=== PATIENT | female | born 1960 | race American Indian/Alaskan Native ===

== ENCOUNTER 2017-01-06 09:39 | Outpatient (CLI) | payer MEDICAID ==
--- NOTE | 2017-01-07 10:28 | Magnetic Resonance Report ---
MRI RIGHT SHOULDER WITHOUT CONTRAST: 01/06/17 CLINICAL: Right shoulder pain. TECHNIQUE: Coronal T1, coronal T2, coronal proton density fat saturation, sagittal proton density fat saturation and axial gradient echo T* sequences on a 1.5 Ginette magnet. FINDINGS: Type I acromion and moderate acromioclavicular joint arthritis with impingement. Full-thickness tears of the supraspinatus and infraspinatus tendons with retraction of the tendons to be level of the acromioclavicular joint. Moderate atrophy and fatty infiltration of the supraspinatus and infraspinatus muscles. Partial-thickness tear of the subscapularis tendon. Biceps tendinosis and fluid in the biceps tendon sheath. The glenoid labrum appears intact. There is a small joint effusion. Normal marrow signal with no bone contusion or fracture. IMPRESSION: 1. A full-thickness rotator cuff tear with involvement of the supraspinatus and infraspinatus tendons. 2. Supraspinatus and infraspinatus muscle atrophy. 3. Partial thickness tear of the subscapularis tendon. 4. Biceps tendinosis. 5. Moderate acromioclavicular joint arthritis with subacromial impingement of the rotator cuff.
== END 2017-01-06 09:40 | disposition home or self-care (01) ==
LOC: MRI 09:39
PROVIDERS: ATTEND Orthopaedic Surgery
DX: S46.911A Strain of unspecified muscle, fascia and tendon at shoulder and upper arm level, right arm, initial encounter (principal); M75.101 Unspecified rotator cuff tear or rupture of right shoulder, not specified as traumatic; M19.011 Primary osteoarthritis, right shoulder; M62.511 Muscle wasting and atrophy, not elsewhere classified, right shoulder; M25.811 Other specified joint disorders, right shoulder; X58.XXXA Exposure to other specified factors, initial encounter; Y93.89 Activity, other specified; Y92.89 Other specified places as the place of occurrence of the external cause; Y99.8 Other external cause status

== ENCOUNTER 2018-07-29 17:14 | Emergency (ER) | payer MEDICAID ==
[2018-07-29 17:35] VITALS: BP 143/62
--- NOTE | 2018-07-29 17:44 | Emergency Department Report ---
ED Rash HPI - HPI Chief Complaint: Skin Rash Stated Complaint: BED BUGS BITES Time Seen by Provider: 07/29/18 17:34 Duration: 1 Day Location: Upper Extremities Suspected Cause: Insect (was at friends house whom had bed bugs helping to clean) Rash Symptoms: Yes Itching, Yes Lightheaded, No Choking Sensation, No Wheezing/Dyspnea, No Blistering Severity: moderate (pruritis) ED Review of Systems ROS: Stated complaint: BED BUGS BITES Other details as noted in HPI Constitutional: denies: chills, fever Eyes: denies: eye pain, eye discharge, vision change ENT: denies: ear pain, throat pain Respiratory: denies: cough, shortness of breath, wheezing Cardiovascular: denies: chest pain, palpitations Endocrine: no symptoms reported Gastrointestinal: denies: abdominal pain, nausea, diarrhea Genitourinary: denies: urgency, dysuria, discharge Musculoskeletal: denies: back pain, joint swelling, arthralgia Skin: rash. denies: lesions Neurological: denies: headache, weakness, paresthesias Psychiatric: denies: anxiety, depression Hematological/Lymphatic: denies: easy bleeding, easy bruising ED Past Medical Hx - Social History Smoking Status: Never Smoker Substance Use Type: None - Medications Home Medications: Home Medications Medication Instructions Recorded Confirmed Last Taken Type Mometasone Furoate [Elocon] 45 gm TP BID #1 cream..g. 07/29/18 Unknown Rx Permethrin [Elimite] 60 gm TP ONCE #1 cream..g. 07/29/18 Unknown Rx hydrOXYzine HCL [Atarax] 25 mg PO Q6HR PRN #20 tablet 07/29/18 Unknown Rx predniSONE [Deltasone] 50 mg PO QDAY #5 tab 07/29/18 Unknown Rx Rash Exam - Exam General: Vital signs noted. No distress. Alert and acting appropriately. HEENT: No Periorbital Edema, No Conjuctival Injection, No Chemosis, No Perioral Edema, No Tongue Edema, No Uvular Edema, No Compromised Airway, No Drooling Lungs: Yes Good Air Exchange (Normal Breath Sounds), No Wheezes, No Ronchi, No Stridor, No Cough, No Labored Respirations, No Retractions, No Use of Accessory Muscles, No Other Abnormal Lung Sounds Heart: Yes Regular, No Murmur Skin: Yes Tenderness, Yes Erythema (dome like insect bite in linear fashing going up arms to shoulder and chest), No Urticarial Rash, No Maculopapular Rash, No Bulla(e), No Excoriations, No Encrustations Other: Positive: Abdomen Normal, Neurologic Normal, Musculoskeletal Normal ED Course Vital Signs 07/29/18 17:34 Temperature 97.7 F Pulse Rate 52 L Respiratory 18 Rate Blood Pressure 143/62 O2 Sat by Pulse 97 Oximetry Critical care attestation.: If time is entered above; I have spent that time in minutes in the direct care of this critically ill patient, excluding procedure time. ED Disposition Clinical Impression: Bed bug bite, Mite infestation Disposition: - TO HOME OR SELFCARE Is pt being admited?: No Does the pt Need Aspirin: No Condition: Stable Instructions: Insect Bite or Sting (ED) Referrals: [facility] [Provider Group] - 3-5 Days
== END 2018-07-30 00:30 | disposition home or self-care (01) ==
LOC: ED 17:14
DX: R21 Rash and other nonspecific skin eruption (principal); Z53.21 Procedure and treatment not carried out due to patient leaving prior to being seen by health care provider

== ENCOUNTER 2019-05-02 09:40 | Emergency (ER) | payer MEDICAID ==
[2019-05-02 09:46] VITALS: BP 148/73
[2019-05-02] MEDS ORDERED: IPRATROPIUM/ALBUTEROL SULFATE 3 ML AMPUL.NEB IH ONE (10:42)
[2019-05-02] MEDS ORDERED: predniSONE 20 MG TAB PO ONE (10:42)
--- NOTE | 2019-05-02 10:45 | Emergency Department Report ---
- General Chief Complaint: Sore Throat Stated Complaint: FLU LIKE SYMPTOMS Time Seen by Provider: 05/02/19 10:34 Source: patient Mode of arrival: Ambulatory Limitations: No Limitations - History of Present Illness Initial Comments: Patient is a 58-year-old black female with past medical history of hypertension who is presenting with cough cold congestion. Patient states symptoms did present for approximately 5 days. Cough was initially nonproductive but now she has a yellow to brown sputum. Patient is has subjective fevers and chills. Patient has some shortness of breath associated with a cough. Patient is complaining of a mild sore throat but denies nausea vomiting diarrhea headache or neck stiffness. - Related Data Previous Rx's Medication Instructions Recorded Last Taken Type Mometasone Furoate [Elocon] 45 gm TP BID #1 cream..g. 07/29/18 Unknown Rx Permethrin [Elimite] 60 gm TP ONCE #1 cream..g. 07/29/18 Unknown Rx hydrOXYzine HCL [Atarax] 25 mg PO Q6HR PRN #20 tablet 07/29/18 Unknown Rx predniSONE [Deltasone] 50 mg PO QDAY #5 tab 07/29/18 Unknown Rx Albuterol INH(or & Nicu Only) 2 puff IH QID PRN #1 inhalation 05/02/19 Unknown Rx [ProAir HFA Inhaler] DOXYCYCLINE Hyclate [Vibramycin 100 mg PO Q12HR #14 capsule 05/02/19 Unknown Rx CAP] Promethazine/Phenyleph/Codeine 5 ml PO TID #120 ml 05/02/19 Unknown Rx [Promethazine Vc-Codeine Syrup] predniSONE [Deltasone] 20 mg PO QDAY #5 tab 05/02/19 Unknown Rx Allergies Allergy/AdvReac Type Severity Reaction Status Date / Time No Known Allergies Allergy Unverified 09/25/13 11:58 ED Review of Systems ROS: Stated complaint: FLU LIKE SYMPTOMS Other details as noted in HPI Comment: All other systems reviewed and negative ED Past Medical Hx - Past Medical History Hx Hypertension: Yes - Surgical History Additional Surgical History: hysterectomy - Social History Smoking Status: Current Every Day Smoker Substance Use Type: None - Medications Home Medications: Home Medications Medication Instructions Recorded Confirmed Last Taken Type Mometasone Furoate [Elocon] 45 gm TP BID #1 cream..g. 04/07/19 Unknown Rx Permethrin [Elimite] 60 gm TP ONCE #1 cream..g. 07/29/18 Unknown Rx hydrOXYzine HCL [Atarax] 25 mg PO Q6HR PRN #20 tablet 07/29/18 Unknown Rx predniSONE [Deltasone] 50 mg PO QDAY #5 tab 07/29/18 Unknown Rx Albuterol INH(or & Nicu Only) 2 puff IH QID PRN #1 inhalation 05/02/19 Unknown Rx [ProAir HFA Inhaler] DOXYCYCLINE Hyclate [Vibramycin 100 mg PO Q12HR #14 capsule 05/02/19 Unknown Rx CAP] Promethazine/Phenyleph/Codeine 5 ml PO TID #120 ml 05/02/19 Unknown Rx [Promethazine Vc-Codeine Syrup] predniSONE [Deltasone] 20 mg PO QDAY #5 tab 05/02/19 Unknown Rx ED Physical Exam - General Limitations: No Limitations General appearance: alert, in no apparent distress - Head Head exam: Present: atraumatic, normocephalic - Eye Eye exam: Present: normal appearance, PERRL, EOMI - ENT ENT exam: Present: mucous membranes moist. Absent: normal orophraynx (patient's posterior pharynx shows mild erythema without exudate) - Neck Neck exam: Present: normal inspection. Absent: lymphadenopathy - Respiratory Respiratory exam: Present: wheezes, rhonchi. Absent: normal lung sounds bilaterally, respiratory distress - Cardiovascular Cardiovascular Exam: Present: regular rate, normal rhythm, normal heart sounds. Absent: systolic murmur, diastolic murmur, rubs, gallop - GI/Abdominal GI/Abdominal exam: Present: soft, normal bowel sounds. Absent: distended, tenderness, guarding, rebound - Extremities Exam Extremities exam: Present: normal inspection - Back Exam Back exam: Present: normal inspection - Neurological Exam Neurological exam: Present: alert, oriented X3 - Psychiatric Psychiatric exam: Present: normal affect, normal mood - Skin Skin exam: Present: warm, dry, intact, normal color. Absent: rash ED Course Vital Signs 05/02/19 09:45 Temperature 97.8 F Pulse Rate 51 L Respiratory 20 Rate Blood Pressure 148/73 O2 Sat by Pulse 99 Oximetry - Reevaluation(s) Reevaluation #1: 05/02/19 10:44 Patient has mild wheeze and a bronchitic cough. 2 DuoNeb slowly given. Patient will have a chest x-ray to rule out pneumonia and a rapid strep will be sent as well. ED Medical Decision Making - Radiology Data Ordering Physician: JULIO CESAR TOLBERT MD Date of Service: 05/02/19 Procedure(s): XR chest 1V ap Accession Number(s): [id number] cc: JULIO CESAR TOLBERT MD Fluoro Time In Minutes: CHEST 1 VIEW INDICATION / CLINICAL INFORMATION: productive cough with fever. COMPARISON: None available. FINDINGS: SUPPORT DEVICES: None. HEART / MEDIASTINUM: No significant abnormality. LUNGS / PLEURA: Mild patchy opacity is seen in the left lower lung that may represent developing airspace consolidation. No pneumothorax. ADDITIONAL FINDINGS: No significant additional findings. IMPRESSION: 1. Minimal opacity in the left lower lung, possibly developing pneumonia. Signer Name: Ferdinand Bowers MD Signed: 05/02/2019 11:42 AM Workstation Name: [id number] - Medical Decision Making Patient was feeling much improved after neb treatment. Lungs have cleared. Cough has subsided. X-ray does show early atypical pneumonia. Patient was started on doxycycline as well as being given medications for symptomatic relief should be discharged home. Critical care attestation.: If time is entered above; I have spent that time in minutes in the direct care of this critically ill patient, excluding procedure time. ED Disposition Clinical Impression: Atypical pneumonia Disposition: DC-01 TO HOME OR SELFCARE Is pt being admited?: No Does the pt Need Aspirin: No Condition: Stable Instructions: Pneumonia (ED) Referrals: TIFFANY GARCIA JR, MD [Primary Care Provider] - 3-5 Days Time of Disposition: 12:25
--- NOTE | 2019-05-02 11:47 | XRay Report ---
CHEST 1 VIEW INDICATION / CLINICAL INFORMATION: productive cough with fever. COMPARISON: None available. FINDINGS: SUPPORT DEVICES: None. HEART / MEDIASTINUM: No significant abnormality. LUNGS / PLEURA: Mild patchy opacity is seen in the left lower lung that may represent developing airs pace consolidation. No pneumothorax. ADDITIONAL FINDINGS: No significant additional findings. IMPRESSION: 1. Minimal opacity in the left lower lung, possibly developing pneumonia. Signer Name: Ferdinand Bowers MD Signed: 05/02/2019 11:42 AM Workstation Name: [id number]
== END 2019-05-02 12:39 | disposition home or self-care (01) ==
LOC: ED 09:40
DX: R05 Cough (principal); J18.9 Pneumonia, unspecified organism; I10 Essential (primary) hypertension; F17.200 Nicotine dependence, unspecified, uncomplicated; Z97.10 Presence of artificial limb (complete) (partial), unspecified; Z79.899 Other long term (current) drug therapy
CPT/HCPCS: 71045; 87116; 87430; 94640; 99284; J7512

== ENCOUNTER 2020-02-10 13:52 | Emergency (ER) | payer MEDICAID ==
[2020-02-10] MEDS ORDERED: PANTOPRAZOLE 40 MG INJ IV ONE (16:25)
[2020-02-10] MEDS ORDERED: MORPHINE 4 MG/1 ML INJ IV ONE (16:25)
[2020-02-10] MEDS ORDERED: ONDANSETRON 4 MG/2 ML INJ IV ONE (16:25)
[2020-02-10 16:45] LABS: Basophils # (Auto) 0.1 K/mm3 (0.0-0.1); Basophils % (Auto) 0.9 % (0.0-1.8); Eosinophils # (Auto) 0.1 K/mm3 (0.0-0.4); Eosinophils % (Auto) 1.3 % (0.0-4.3); Hematocrit 39.3 % (30.3-42.9); Hemoglobin 13.4 gm/dl (10.1-14.3); Lymphocytes # (Auto) 2.3 K/mm3 (1.2-5.4); Lymphocytes % (Auto) 33.3 % (13.4-35.0); Mean Corpuscular HGB Conc 34 % (30-34); Mean Corpuscular Volume 87 fl (79-97); Monocytes # (Auto) 0.5 K/mm3 (0.0-0.8); Monocytes % (Auto) 7.3 % (0.0-7.3); Platelet Count 225 K/mm3 (140-440); Red Blood Count 4.52 M/mm3 (3.65-5.03); Red Cell Distribution Width 14.8 % (13.2-15.2)
--- NOTE | 2020-02-10 16:45 | Emergency Department Report ---
ED Abdominal Pain HPI - General Chief Complaint: Abdominal Pain Stated Complaint: STOMACH PAIN Time Seen by Provider: 02/10/20 15:59 Source: patient Mode of arrival: Ambulatory Limitations: No Limitations - History of Present Illness Initial Comments: Patient is a 59-year-old female presents emergency room with complaints of upper abdominal pain that began a week ago. She states that a couple weeks ago she began to notice bright red blood in her stool. She states that she has not seen any blood in the stool in approximately 4 days. She states that she has associated nausea. She states that she had a small bowel movement this morning. She denies any vomiting, diarrhea, melena, fever, urinary symptoms. She has a past medical history of bipolar and hypertension. No allergies to medications. She has a past abdominal surgical history of hernia repair and total hysterectomy. - Related Data Previous Rx's Medication Instructions Recorded Last Taken Type Mometasone Furoate [Elocon] 45 gm TP BID #1 cream..g. 07/29/18 Unknown Rx Permethrin [Elimite] 60 gm TP ONCE #1 cream..g. 07/29/18 Unknown Rx hydrOXYzine HCL [Atarax] 25 mg PO Q6HR PRN #20 tablet 07/29/18 Unknown Rx predniSONE [Deltasone] 50 mg PO QDAY #5 tab 07/29/18 Unknown Rx Albuterol Mdi (or & Nicu Only) 2 puff IH QID PRN #1 inhalation 05/02/19 Unknown Rx [ProAir HFA Inhaler] DOXYCYCLINE Hyclate [Vibramycin 100 mg PO Q12HR #14 capsule 05/02/19 Unknown Rx CAP] Promethazine/Phenyleph/Codeine 5 ml PO TID #120 ml 05/02/19 Unknown Rx [Promethazine Vc-Codeine Syrup] predniSONE [Deltasone] 20 mg PO QDAY #5 tab 05/02/19 Unknown Rx Docusate Sodium [Colace] 100 mg PO BID PRN #20 capsule 02/10/20 Unknown Rx Famotidine [Pepcid] 40 mg PO QHS #30 tablet 02/10/20 Unknown Rx Hydrocortisone [Anusol-Hc 2.5% TOP 1 applicatio RC BID #1 cream..g. 02/10/20 Unknown Rx CREAM] Lidocaine [Lidocaine GEL] 1 applicatio TP BID PRN #30 02/10/20 Unknown Rx gel..gram. Allergies Allergy/AdvReac Type Severity Reaction Status Date / Time No Known Allergies Allergy Unverified 09/25/13 11:58 ED Review of Systems ROS: Stated complaint: STOMACH PAIN Other details as noted in HPI Comment: All other systems reviewed and negative ED Past Medical Hx - Past Medical History Previous Medical History?: Yes Hx Hypertension: Yes Hx Psychiatric Treatment: Yes - Surgical History Past Surgical History?: Yes Additional Surgical History: hysterectomy. hernia - Social History Smoking Status: Current Every Day Smoker Substance Use Type: None - Medications Home Medications: Home Medications Medication Instructions Recorded Confirmed Last Taken Type Mometasone Furoate [Elocon] 45 gm TP BID #1 cream..g. 07/29/18 Unknown Rx Permethrin [Elimite] 60 gm TP ONCE #1 cream..g. 07/29/18 Unknown Rx hydrOXYzine HCL [Atarax] 25 mg PO Q6HR PRN #20 tablet 07/29/18 Unknown Rx predniSONE [Deltasone] 50 mg PO QDAY #5 tab 07/29/18 Unknown Rx Albuterol Mdi (or & Nicu Only) 2 puff IH QID PRN #1 inhalation 05/02/19 Unknown Rx [ProAir HFA Inhaler] DOXYCYCLINE Hyclate [Vibramycin 100 mg PO Q12HR #14 capsule 05/02/19 Unknown Rx CAP] Promethazine/Phenyleph/Codeine 5 ml PO TID #120 ml 05/02/19 Unknown Rx [Promethazine Vc-Codeine Syrup] predniSONE [Deltasone] 20 mg PO QDAY #5 tab 05/02/19 Unknown Rx Docusate Sodium [Colace] 100 mg PO BID PRN #20 capsule 02/10/20 Unknown Rx Famotidine [Pepcid] 40 mg PO QHS #30 tablet 02/10/20 Unknown Rx Hydrocortisone [Anusol-Hc 2.5% TOP 1 applicatio RC BID #1 cream..g. 02/10/20 Unknown Rx CREAM] Lidocaine [Lidocaine GEL] 1 applicatio TP BID PRN #30 02/10/20 Unknown Rx gel..gram. ED Physical Exam - General Limitations: No Limitations General appearance: alert, in no apparent distress - Head Head exam: Present: atraumatic, normocephalic - Eye Eye exam: Present: normal appearance - ENT ENT exam: Present: mucous membranes moist - Respiratory Respiratory exam: Present: normal lung sounds bilaterally. Absent: respiratory distress, wheezes, rales, rhonchi, stridor, chest wall tenderness, accessory muscle use, decreased breath sounds, prolonged expiratory - Cardiovascular Cardiovascular Exam: Present: regular rate, normal rhythm, normal heart sounds. Absent: systolic murmur, diastolic murmur, rubs, gallop - GI/Abdominal GI/Abdominal exam: Present: soft, tenderness (epigastric), normal bowel sounds, other (protuberant abdomen, prior healed surgical scars on the abdomen). Absent: guarding, rebound, rigid - Rectal Rectal exam: Present: other (small nonthrombosed external hemorrhoid, small anal fissure, brown stool, no gross blood, no active bleeding, no masses or fluctuance, no erythema, family intervention specialist: MARCEL loredo) - Neurological Exam Neurological exam: Present: alert, oriented X3 - Psychiatric Psychiatric exam: Present: normal affect, normal mood - Skin Skin exam: Present: warm, dry, intact ED Course Vital Signs 02/10/20 14:07 Temperature 98.4 F Pulse Rate 43 L Respiratory 18 Rate Blood Pressure 162/80 O2 Sat by Pulse 95 Oximetry ED Medical Decision Making - Lab Data Result diagrams: 02/10/20 16:34 02/10/20 16:34 Lab Results 02/10/20 02/10/20 02/10/20 Range/Units 16:34 16:34 17:45 WBC 6.8 (4.5-11.0) K/mm3 RBC 4.52 (3.65-5.03) M/mm3 Hgb 13.4 (10.1-14.3) gm/dl Hct 39.3 (30.3-42.9) % MCV 87 (79-97) fl MCH 30 (28-32) pg MCHC 34 (30-34) % RDW 14.8 (13.2-15.2) % Plt Count 225 (140-440) K/mm3 Lymph % (Auto) 33.3 (13.4-35.0) % [place] % (Auto) 7.3 (0.0-7.3) % Eos % (Auto) 1.3 (0.0-4.3) % Baso % (Auto) 0.9 (0.0-1.8) % Lymph # (Auto) 2.3 (1.2-5.4) K/mm3 [place] # (Auto) 0.5 (0.0-0.8) K/mm3 Eos # (Auto) 0.1 (0.0-0.4) K/mm3 Baso # (Auto) 0.1 (0.0-0.1) K/mm3 Seg Neutrophils % 57.2 (40.0-70.0) % Seg Neutrophils # 3.9 (1.8-7.7) K/mm3 Sodium 140 (137-145) mmol/L Potassium 4.2 (3.6-5.0) mmol/L Chloride 106.4 (98-107) mmol/L Carbon Dioxide 21 L (22-30) mmol/L Anion Gap 17 mmol/L BUN 10 (7-17) mg/dL Creatinine 0.7 (0.6-1.2) mg/dL Estimated GFR > 60 ml/min BUN/Creatinine Ratio 14 % Glucose 104 H (65-100) mg/dL Calcium 9.5 (8.4-10.2) mg/dL Total Bilirubin 0.40 (0.1-1.2) mg/dL AST 20 (5-40) units/L ALT 20 (7-56) units/L Alkaline Phosphatase 64 (35-129) units/L Total Protein 8.2 (6.3-8.2) g/dL Albumin 4.5 (3.9-5) g/dL Albumin/Globulin Ratio 1.2 % Lipase 44 (13-60) units/L Urine Color Straw (Yellow) Urine Turbidity Clear (Clear) Urine pH 6.0 (5.0-7.0) Ur Specific [place] 1.039 H (1.003-1.030) Urine Protein <15 mg/dl (Negative) mg/dL Urine Glucose (UA) Neg (Negative) mg/dL Urine Ketones Neg (Negative) mg/dL Urine Blood Neg (Negative) Urine Nitrite Neg (Negative) Urine Bilirubin Neg (Negative) Urine Urobilinogen < 2.0 (<2.0) mg/dL Ur Leukocyte Esterase Sm (Negative) Urine WBC (Auto) 5.0 (0.0-6.0) /HPF Urine RBC (Auto) 3.0 (0.0-6.0) /HPF U Epithel Cells (Auto) 9.0 (0-13.0) /HPF - Radiology Data Radiology results: report reviewed Ordering Physician: JANUSZ HICKMAN Date of Service: 02/10/20 Procedure(s): CT abdomen pelvis w con Accession Number(s): [id number] cc: JANUSZ HICKMAN CT ABDOMEN AND PELVIS WITH CONTRAST INDICATION / CLINICAL INFORMATION: Upper abdominal pain, nausea, bloody stools for 2 days. TECHNIQUE: Axial CT images were obtained through the abdomen and pelvis after 100 cc Omnipaque [address] scans at this location are performed using CT dose reduction for ALARA by means of automated exposure control. COMPARISON: CT abdomen and pelvis with contrast from 02/05/2015. FINDINGS: LOWER CHEST: No significant abnormality. LIVER: There is generalized steatosis without other significant abnormalities. GALLBLADDER: No significant abnormality. BILE DUCTS: No significant abnormality. PANCREAS: No significant abnormality. SPLEEN: No significant abnormality. ADRENALS: There are similar bilateral adrenal nodules measuring 1.6 x 0.9 cm on the left and 0.9 x 0.7 cm on the right that likely represent adenomas. RIGHT KIDNEY / URETER: There is mild to moderate right renal cortical thinning with partial nephrectomy changes and multifocal cortical scarring. No other significant abnormality. LEFT KIDNEY / URETER: A nonobstructive left upper renal pole stone measures 2.7 mm. There is left upper renal pole cortical scarring with a tiny posterior left upper renal pole cyst. No other significant abnormality. STOMACH / SMALL BOWEL: No significant abnormality. COLON: No significant abnormality. APPENDIX: No significant abnormality. PERITONEUM: No free fluid. No free air. No fluid collection. LYMPH NODES: No significant adenopathy. AORTA / ARTERIES: Mild generalized atherosclerosis without other significant abnormalities. IVC / VEINS: No significant abnormality. URINARY BLADDER: No significant abnormality. REPRODUCTIVE ORGANS: Prior hysterectomy. No significant adnexal abnormality. ADDITIONAL FINDINGS: None. SKELETAL SYSTEM: No significant abnormality. IMPRESSION: 1. No acute findings. 2. Additional findings as above. Signer Name: Spencer Valles MD Signed: 02/10/2020 5:36 PM Workstation Name: [id number] Transcribed By: THUY Dictated By: Spencer Valles MD Electronically Authenticated By: Spencer Valles MD Signed Date/Time: 02/10/201735 DD/ 1730 TD/TT: - Medical Decision Making Patient is a 59-year-old female presents emergency room with complaints of upper abdominal pain that began a week ago. She states that a couple weeks ago she began to notice bright red blood in her stool. She states that she has not seen any blood in the stool in approximately 4 days. She states that she has associated nausea. She states that she had a small bowel movement this morning. She denies any vomiting, diarrhea, melena, fever, urinary symptoms. She has a past medical history of bipolar and hypertension. No allergies to medications. She has a past abdominal surgical history of hernia repair and total hysterectomy. Vitals are stable. On exam patient has epigastric tenderness palpation, no guarding, no rebound, no rigidity, normal bowel sounds, no perit gamble signs, rectal exam: small nonthrombosed external hemorrhoid, small anal fissure, brown stool, no gross blood, no active bleeding, no masses or fluctuance, no erythema, family intervention specialist: MARCEL loredo. Hemoccult performed by de and is negative. Labs are normal. UA is within normal limits. CT abdomen pelvis with IV contrast 1. No acute findings. 2. Additional findings as above. Discussed all results with patient and answered questions. Patient given medications while in the ED and symptoms improved and she was feeling much better ready to go home. Patient be referred to GI doctor and primary care physician. Patient given prescription for Pepcid, Anusol, lidocaine gel, Colace. advised pt Please use medication as prescribed. Increase your water intake. Please follow the diet for ulcers. Follow-up with a primary care doctor. Follow-up with a GI doctor. Return to emergency room for any new or worsening symptoms. - Differential Diagnosis PUD, GERD, SBO, mass, pancreatitis, cholecystitis, cholelithiasis, GI bleed Critical care attestation.: If time is entered above; I have spent that time in minutes in the direct care of this critically ill patient, excluding procedure time. ED Disposition Clinical Impression: External hemorrhoid, Anal fissure Abdominal pain Qualifiers: Abdominal location: epigastric Qualified Code(s): R10.13 - Epigastric pain Disposition: DC-01 TO HOME OR SELFCARE Is pt being admited?: No Does the pt Need Aspirin: No Condition: Stable Instructions: Hemorrhoids (ED), Anal Fissure (ED), Diet for Ulcers and Gastritis (ED), Abdominal Pain (ED) Additional Instructions: Please use medication as prescribed. Increase your water intake. Please follow the diet for ulcers. Follow-up with a primary care doctor. Follow-up with a GI doctor. Return to emergency room for any new or worsening symptoms. Prescriptions: Famotidine [Pepcid] 40 mg PO QHS #30 tablet Hydrocortisone [Anusol-Hc 2.5% TOP CREAM] 1 applicatio RC BID #1 cream..g. Docusate Sodium [Colace] 100 mg PO BID PRN #20 capsule PRN Reason: Constipation Lidocaine [Lidocaine GEL] 1 applicatio TP BID PRN #30 gel..gram. PRN Reason: rectal pain Referrals: SIERRA MCBRIDE MD [Staff Physician] - 2-3 Days [facility] [Provider Group] - 2-3 Days [facility] [Provider Group] - 2-3 Days Time of Disposition: 18:02 Print Language: MOLDOVAN
[2020-02-10 16:59] LABS: Alanine Aminotransferase 20 units/L (7-56); Albumin 4.5 g/dL (3.9-5); Blood Urea Nitrogen 10 mg/dL (7-17); Calcium 9.5 mg/dL (8.4-10.2); Hemolysis Index 67
[2020-02-10 17:02] LABS: BUN/Creatinine Ratio 14
--- NOTE | 2020-02-10 17:41 | Cat Scan Report ---
CT ABDOMEN AND PELVIS WITH CONTRAST INDICATION / CLINICAL INFORMATION: Upper abdominal pain, nausea, bloody stools for 2 days. TECHNIQUE: Axial CT images were obtained through the abdomen and pelvis after 100 cc Omnipaque [address] scans at this location are performed using CT dose reduction for ALARA by means of automated exposure control. COMPARISON: CT abdomen and pelvis with contrast from 02/05/2015. FINDINGS: LOWER CHEST: No significant abnormality. LIVER: There is generalized steatosis without other significant abnormalities. GALLBLADDER: No significant abnormality. BILE DUCTS: No significant abnormality. PANCREAS: No significant abnormality. SPLEEN: No significant abnormality. ADRENALS: There are similar bilateral adrenal nodules measuring 1.6 x 0.9 cm on the left and 0.9 x 0. 7 cm on the right that likely represent adenomas. RIGHT KIDNEY / URETER: There is mild to moderate right renal cortical thinning with partial nephrecto my changes and multifocal cortical scarring. No other significant abnormality. LEFT KIDNEY / URETER: A nonobstructive left upper renal pole stone measures 2.7 mm. There is left upp er renal pole cortical scarring with a tiny posterior left upper renal pole cyst. No other significan t abnormality. STOMACH / SMALL BOWEL: No significant abnormality. COLON: No significant abnormality. APPENDIX: No significant abnormality. PERITONEUM: No free fluid. No free air. No fluid collection. LYMPH NODES: No significant adenopathy. AORTA / ARTERIES: Mild generalized atherosclerosis without other significant abnormalities. IVC / VEINS: No significant abnormality. URINARY BLADDER: No significant abnormality. REPRODUCTIVE ORGANS: Prior hysterectomy. No significant adnexal abnormality. ADDITIONAL FINDINGS: None. SKELETAL SYSTEM: No significant abnormality. IMPRESSION: 1. No acute findings. 2. Additional findings as above. Signer Name: Spencer Valles MD Signed: 02/10/2020 5:36 PM Workstation Name: [id number]
[2020-02-10 17:55] LABS: Bilirubin,Urine NEG (Negative); Blood,Urine NEG (Negative); Color,Urine Straw (Yellow); Protein,Urine <15 mg/dL mg/dL (Negative); Urobilinogen,Urine < 2.0 mg/dL (<2.0)
[2020-02-10 18:28] VITALS: BP 189/77
== END 2020-02-10 18:44 | disposition home or self-care (01) ==
LOC: ED 13:52
DX: K60.2 Anal fissure, unspecified (principal); K64.4 Residual hemorrhoidal skin tags; R10.10 Upper abdominal pain, unspecified; I10 Essential (primary) hypertension; F17.200 Nicotine dependence, unspecified, uncomplicated; Z90.710 Acquired absence of both cervix and uterus; Z79.899 Other long term (current) drug therapy; Z98.890 Other specified postprocedural states
CPT/HCPCS: 36415; 74177; 80053; 81001; 82271; 83690; 85025; 96374; 96375; 99284; C9113; J2270; J2405; Q9967

== ENCOUNTER 2021-11-04 11:27 | Outpatient (CLI) | payer MEDICAID ==
--- NOTE | 2021-11-04 14:33 | XRay Report ---
LEFT SHOULDER 3 VIEWS INDICATION: LT SHOULDER PAIN. COMPARISON: None. IMPRESSION: No acute osseous or soft tissue abnormality. Mild osteoarthritic changes are identifi ed at the glenohumeral joint and AC joint. Signer Name: James Sánchez Jr, MD Signed: 11/04/2021 2:28 PM Workstation Name: [id number]
--- NOTE | 2021-11-08 08:35 | Mammography Report ---
DIGITAL SCREENING MAMMOGRAM WITH CAD, 11/04/2021 CLINICAL INFORMATION / INDICATION: Routine screening mammography. TECHNIQUE: Digital bilateral 2D mammography was obtained in the craniocaudal and mediolateral oblique projections. This examination was interpreted with the benefit of Computer-Aided Detection analysis. COMPARISON: 09/25/2013 through 11/30/2015. FINDINGS: Breast Density: The breasts are heterogeneously dense, which may obscure small masses. No dominant mass, suspicious calcifications, or architectural distortion in either breast. Small benign intramammary lymph node in the left upper outer quadrant is stable. IMPRESSION: No mammographic evidence of malignancy. Follow up recommendation: Routine yearly screening mammogram. BI-RADS Category 2: BENIGN. A "normal" or negative report should not discourage follow up or biopsy of a clinically significant f inding. A written summary of these findings will be mailed to the patient. The patient will be entered into a mammography reporting system which will generate a reminder letter for the patient's next appointmen t at the appropriate interval. The [employer] recommends yearly mammograms starting at age 40 and continuing as l juan jose as a woman is in good health. Breast MRI is recommended for women with an approximate 20-25% or greater lifetime risk of breast cancer, including women with a strong family history of breast or ova andreea cancer or who have been treated for Hodgkin's disease. Signer Name: Chase Babcock MD Signed: 11/08/2021 8:30 AM Workstation Name: [email or web address]
== END 2021-11-04 11:28 | disposition home or self-care (01) ==
LOC: MAMMO 11:27
PROVIDERS: ATTEND Emergency Medicine
DX: Z12.31 Encounter for screening mammogram for malignant neoplasm of breast (principal); M19.012 Primary osteoarthritis, left shoulder
CPT/HCPCS: 77067

== ENCOUNTER 2021-12-24 13:34 | Outpatient (CLI) | payer MEDICAID ==
--- NOTE | 2021-12-24 14:55 | Vascular Lab Report ---
. DUPLEX DOPPLER LOWER EXTREMITY VEINS, BILATERAL INDICATION / CLINICAL INFORMATION: SOB R06.02. TECHNIQUE: Duplex doppler imaging was performed through the veins of both lower extremities using venous raysa francisco and other maneuvers. COMPARISON: None available. FINDINGS: RIGHT COMMON FEMORAL VEIN: Negative. RIGHT FEMORAL VEIN: Negative. RIGHT POPLITEAL VEIN: Negative. RIGHT CALF VEINS: Negative. LEFT COMMON FEMORAL VEIN: Negative. LEFT FEMORAL VEIN: Negative. LEFT POPLITEAL VEIN: Negative. LEFT CALF VEINS: Negative. ADDITIONAL FINDINGS: None. IMPRESSION: 1. No sonographic evidence for DVT in either lower extremity. Signer Name: Mark Johns MD Signed: 12/24/2021 2:51 PM Workstation Name: [email or web address]
== END 2021-12-24 13:35 | disposition home or self-care (01) ==
LOC: VAS 13:34
PROVIDERS: ATTEND Internal Medicine
DX: R06.02 Shortness of breath (principal)
CPT/HCPCS: 93970